=== PATIENT | female | born 1970 | race Caucasian/White ===

== ENCOUNTER 2018-11-05 01:03 | Emergency (ER) | payer OTHER ==
--- OUTSIDE RECORDS SUMMARY | 2018-11-05 01:05 | XMS REPORT ---
:1970 Author Organization [facility] Address [address] [place] [address] Care Team Providers Name Role Phone Unavailable Unavailable Unavailable Problems This patient has no known problems. Allergies, Adverse Reactions, Alerts This patient has no known allergies or adverse reactions. Medications This patient has no known medications.
[2018-11-05 02:03] LABS: Absolute Lymphocytes (CBC) 0.4 K/uL (0.7-4.9); Absolute Monocytes 0.8 K/uL (0.1-1.3); Absolute Neutrophil 5.3 K/uL (1.8-8.0); Basophils % 0.4 % (0-1.3); Eosinophils % 0.9 % (0-4.4); Hematocrit 35.8 % (36.0-45.0); Lymphocytes % 6.5 % (15.3-44.8); MPV 9.2 fL (7.6-11.3); Monocytes % 11.5 % (3.3-12.3); RBC Red Blood Cell Count 3.83 M/uL (3.86-4.86)
[2018-11-05] MEDS ORDERED: METRONIDAZOLE 500mg IVPB 500 MG/100 ML BAG IV ONE (02:03)
[2018-11-05] MEDS ORDERED: ONDANSETRON 4 MG/2 ML VIAL ONE (02:03)
[2018-11-05] MEDS ORDERED: MORPHINE 4 MG/ML SYR ONE (02:03)
[2018-11-05] MEDS ORDERED: CEFTRIAXONE/SWI 1gm 0 GM/0 ML SYR ONE (02:03)
[2018-11-05] MEDS ORDERED: NA CHLORIDE 0.9% 1,000 ML ONE (02:03)
[2018-11-05 02:22] LABS: Albumin 3.4 g/dL (3.4-5.0); Bilirubin Direct 0.2 mg/dL (0-0.2); Bilirubin Total 0.5 mg/dL (0.2-1.0); Potassium 4.2 mmol/L (3.5-5.1); Protein, Total 6.5 g/dL (6.4-8.2)
[2018-11-05] MEDS ORDERED: CIPROFLOXACIN 400mg IV 400 MG/200 ML BAG IV ONE (02:46)
--- NOTE | 2018-11-05 05:16 | EDPHYS ---
Physician Documentation [facility] Name: Alice Vines Age: 48 yrs Sex: Female : 1970 Arrival Date: 11/05/2018 Time: 01:04 Bed 5 Private MD: Rita Loco K ED Physician Wendy Porras HPI: 11/05 01:33 This 48 yrs old Female presents to ER via Wheelchair with complaints of ma2 Abdominal Pain. 01:33 The patient presents with abdominal pain. Onset: The symptoms/episode began/occurred ma2 gradually, 1 day(s) ago. The symptoms do not radiate. Associated signs and symptoms: Pertinent negatives: anorexia, blood in stools. The symptoms are described as burning. Severity of pain: At its worst the pain was moderate in the emergency department the pain is unchanged. The patient has not experienced similar symptoms in the past. 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 - Social history:: Smoking status: Patient/guardian denies using tobacco, Patient/guardian denies using alcohol, street drugs, The patient lives with family. - Ebola Screening: : Patient negative for fever greater than or equal to 101.5 degrees Fahrenheit, and additional compatible Ebola Virus Disease symptoms. - Family history:: not pertinent. ROS: 01:33 Constitutional: Negative for fever, chills, and weight loss, Cardiovascular: Negative ma2 for chest pain, palpitations, and edema, Respiratory: Negative for shortness of breath, cough, wheezing, and pleuritic chest pain. 01:33 Abdomen/GI: Positive for abdominal pain, Negative for nausea and vomiting, nausea, vomiting, and diarrhea, bowel incontinence. 01:33 All other systems are negative. Exam: 01:33 Constitutional: This is a well developed, well nourished patient who is awake, alert, ma2 and in no acute distress. 01:33 Abdomen/GI: Palpation: moderate abdominal tenderness, in the right upper quadrant, left upper quadrant, right lower quadrant and left lower quadrant, Hernia: not appreciated. 01:33 Neck: Trachea midline, no thyromegaly or masses palpated, and no cervical [facility] lymphadenopathy. Supple, full range of motion without nuchal rigidity, or vertebral point tenderness. No Meningismus. Chest/axilla: Normal chest wall appearance and motion. Nontender with no deformity. No lesions are appreciated. Cardiovascular: Regular rate and rhythm with a normal S1 and S2. No gallops, murmurs, or rubs. Normal PMI, no JVD. No pulse deficits. Respiratory: Lungs have equal breath sounds bilaterally, clear to auscultation and percussion. No rales, rhonchi or wheezes noted. No increased work of breathing, no retractions or nasal flaring. Vital Signs: 01:25 BP 115 / 68; Pulse 105; Resp 20 S; Temp 98.6(O); Pulse Ox 100% on R/A; Weight 55.79 kg jd3 (R); Height 5 ft. 6 in. (167.64 cm) (R); Pain 9/10; 04:11 BP 112 / 72; Pulse 90; Resp 16; Pulse Ox 99% ; Pain 0/10; jl3 05:03 BP 96 / 70; Pulse 89; Resp 17 S; Pulse Ox 99% on R/A; jd3 01:25 Body Mass Index 19.85 (55.79 kg, 167.64 cm) jd3 MDM: 01:17 Patient medically screened. [facility] 01:33 Differential diagnosis: gastritis, Irritable bowel syndrome. [facility] 05:13 Data reviewed: vital signs, nurses notes. Counseling: I had a detailed discussion with [facility] the patient and/or guardian regarding: the historical points, exam findings, and any diagnostic results supporting the discharge/admit diagnosis, the presence of at least one elevated blood pressure reading (>120/80) during this emergency department visit. Response to treatment: the patient's symptoms have resolved after treatment. 11/05 01:31 Order name: Basic Metabolic Panel; Complete Time: 02:27 [facility] 11/05 01:31 Order name: CBC with Diff; Complete Time: 02:27 [facility] 11/05 01:31 Order name: Creatinine for Radiology; Complete Time: 02: [facility] 11/05 01:31 Order name: Hepatic Function; Complete Time: 02:27 ia2 11/05 01:31 Order name: Lipase; Complete Time: 02:11/05 01:31 Order name: Test, Serum; Complete Time: :11/05 01:31 Order name: IV Saline Lock; Complete Time: 03:46 11/05 01:31 Order name: CT Abd/Pelvis - W/Contrast 11/05 01:31 Order name: Labs collected and sent; Complete Time: 03:46 11/05 01:31 Order name: Urine Dipstick-Ancillary (obtain specimen); Complete Time: 03:46 Administered Medications: 01:56 Drug: Flagyl 500 mg Volume: 100 ml; Route: IVPB; Rate: 200 ml/hr; Infused Over: 30 jl3 mins; Site: right antecubital; 03:45 Follow up: Response: No adverse reaction; IV Status: Completed infusion; IV Intake: jl3 100ml 01:57 Drug: NS 0.9% 1000 ml Route: IV; Rate: 1 bolus; Site: right antecubital; jl3 03:46 Follow up: IV Status: Completed infusion; IV Intake: 1000ml jl3 01:57 Drug: Zofran 4 mg Route: IVP; Site: right antecubital; jl3 03:45 Follow up: Response: No adverse reaction; Nausea is decreased jl3 01:57 Drug: morphine 4 mg Route: IVP; Site: right antecubital; jl3 03:45 Follow up: Response: No adverse reaction; Pain is decreased jl3 01:57 Drug: Rocephin 1 grams Route: IV; Rate: 1 calculated rate; Site: right antecubital; jl3 03:46 Follow up: IV Status: Completed infusion; IV Intake: 200ml jl3 05:25 Drug: Fleet Enema 133 ml Route: IA; jd3 05:25 Follow up: Response: Medication administered at discharge. jd3 Disposition: 11/05/18 05:15 Discharged to Home. Impression: Constipation, Leiomyoma of uterus. - Condition is Stable. - Discharge Instructions: Constipation, Adult. - Prescriptions for Colace 100 mg Oral Tablet - take 1 tablet by ORAL route every 12 hours; 14 tablet. - Medication Reconciliation Form, Thank You Letter, Antibiotic Education, Prescription Opioid Use form. - Follow up: Private Physician; When: Tomorrow; Reason: Continuance of care. Signatures: Dispatcher [employer] Kavin Corado RN RN jl3 Damon Motley RN RN jd3 Wendy Porras MD MD ma2 Corrections: (The following items were deleted from the chart) 05:26 05:15 11/05/2018 05:15 Discharged to Home. Impression: Constipation; Leiomyoma of jd3 uterus. Condition is Stable. Forms are Medication Reconciliation Form, Thank You Letter, Antibiotic Education, Prescription Opioid Use. Follow up: Private Physician; When: Tomorrow; Reason: Continuance of care. ma2
--- NOTE | 2018-11-05 05:16 | ER ---
Nurse's Notes [facility] Name: Alice Vines Age: 48 yrs Sex: Female : 1970 Arrival Date: 11/05/2018 Time: 01:04 Bed 5 Private MD: Rita Loco K Diagnosis: Constipation;Leiomyoma of uterus Presentation: 11/05 01:23 Presenting complaint: Patient states: "I am having quite a bit of abdominal pain. it jd3 started while I was at work and I tried to wait it out and see my doctor in the morning, but it just got to bad. it feels like really bad cramps, but irregular and very painful.". Transition of care: patient was not received from another setting of care. Onset of symptoms was November 05, 2018. Risk Assessment: Do you want to hurt yourself or someone else? Patient reports no desire to harm self or others. Initial Sepsis Screen: Does the patient meet any 2 criteria? No. Patient's initial sepsis screen is negative. Does the patient have a suspected source of infection? No. Patient's initial sepsis screen is negative. Care prior to arrival: None. 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 - Social history:: Smoking status: Patient/guardian denies using tobacco, Patient/guardian denies using alcohol, street drugs, The patient lives with family. - Ebola Screening: : Patient negative for fever greater than or equal to 101.5 degrees Fahrenheit, and additional compatible Ebola Virus Disease symptoms. - Family history:: not pertinent. Screenin:26 Abuse screen: Denies threats or abuse. Nutritional screening: No deficits noted. jd3 Tuberculosis screening: No symptoms or risk factors identified. Fall Risk Ambulatory Aid- None/Bed Rest/Nurse Assist (0 pts). Gait- Weak (10 pts.). Mental Status- Oriented to own ability (0 pts). Total Lee Fall Scale indicates No Risk (0-24 pts). Assessment: 02:16 Reassessment: pt finished PO contrast. jd3 03:42 General: Pt states abd pain began in pelvic area Thursday, moved to upper and lower jl3 abd and worsened to "unbearable" night. Hx endometriosis. Allergic to PCN.. General: Appears distressed, uncomfortable, slender, well nourished, Behavior is calm, cooperative. Pain: Complains of pain in right upper quadrant, left upper quadrant, right lower quadrant and left lower quadrant Pain currently is 8 out of 10 on a pain scale. Neuro: No deficits noted. Cardiovascular: No deficits noted. Respiratory: No deficits noted. GI: Bowel sounds present X 4 quads. Abdomen is tender to palpation. : No deficits noted. EENT: No deficits noted. Derm: No deficits noted. Musculoskeletal: No deficits noted. 05:03 Reassessment: Patient appears in no apparent distress at this time. Patient and/or jd3 family updated on plan of care and expected duration. Pain level reassessed. Patient is alert, oriented x 3, equal unlabored respirations, skin warm/dry/pink. awaiting CT results. 05:25 Reassessment: Patient appears in no apparent distress at this time. Patient and/or jd3 family updated on plan of care and expected duration. Pain level reassessed. Patient is alert, oriented x 3, equal unlabored respirations, skin warm/dry/pink. Patient states feeling better. Vital Signs: 01:25 BP 115 / 68; Pulse 105; Resp 20 S; Temp 98.6(O); Pulse Ox 100% on R/A; Weight 55.79 kg jd3 (R); Height 5 ft. 6 in. (167.64 cm) (R); Pain 9/10; 04:11 BP 112 / 72; Pulse 90; Resp 16; Pulse Ox 99% ; Pain 0/10; jl3 05:03 BP 96 / 70; Pulse 89; Resp 17 S; Pulse Ox 99% on R/A; jd3 01:25 Body Mass Index 19.85 (55.79 kg, 167.64 cm) jd3 ED Course: 01:04 Patient arrived in ED. am2 01:05 Rita Loco MD is Private Physician. am2 01:17 Wendy Porras MD is Attending Physician. ma2 01:25 Triage completed. jd3 01:26 Arm band placed on. jd3 01:26 Patient has correct armband on for positive identification. Bed in low position. Call jd3 light in reach. Side rails up X 1. Adult w/ patient. 01:50 Inserted saline lock: 20 gauge in right antecubital area, using aseptic technique. jd3 Blood collected. 03:42 Kavin Jensen, RN is Primary Nurse. jl3 04:32 CT completed. Patient tolerated procedure well. Patient moved to CT via wheelchair. eh Patient moved back from CT. 04:37 CT Abd/Pelvis - W/Contrast In Process Unspecified. EDMS 04:45 Primary Nurse role handed off by Kavin Jensen, VINH jd3 04:45 Damon Motley RN is Primary Nurse. jd3 05:25 No provider procedures requiring assistance completed. IV discontinued, intact, jd3 bleeding controlled, No redness/swelling at site. Pressure dressing applied. Administered Medications: 01:56 Drug: Flagyl 500 mg Volume: 100 ml; Route: IVPB; Rate: 200 ml/hr; Infused Over: 30 jl3 mins; Site: right antecubital; 03:45 Follow up: Response: No adverse reaction; IV Status: Completed infusion; IV Intake: jl3 100ml 01:57 Drug: NS 0.9% 1000 ml Route: IV; Rate: 1 bolus; Site: right antecubital; jl3 03:46 Follow up: IV Status: Completed infusion; IV Intake: 1000ml jl3 01:57 Drug: Zofran 4 mg Route: IVP; Site: right antecubital; jl3 03:45 Follow up: Response: No adverse reaction; Nausea is decreased jl3 01:57 Drug: morphine 4 mg Route: IVP; Site: right antecubital; jl3 03:45 Follow up: Response: No adverse reaction; Pain is decreased jl3 01:57 Drug: Rocephin 1 grams Route: IV; Rate: 1 calculated rate; Site: right antecubital; jl3 03:46 Follow up: IV Status: Completed infusion; IV Intake: 200ml jl3 05:25 Drug: Fleet Enema 133 ml Route: MS; jd3 05:25 Follow up: Response: Medication administered at discharge. jd3 Intake: 03:45 IV: 100ml; Total: 100ml. jl3 03:46 IV: 1000ml; Total: 1100ml. jl3 03:46 IV: 200ml; Total: 1300ml. jl3 Outcome: 05:15 Discharge ordered by . franny 05:26 Discharged to home via wheelchair, with family. jd3 05:26 Condition: stable 05:26 Discharge instructions given to patient, family, Instructed on discharge instructions, follow up and referral plans. medication usage, Demonstrated understanding of instructions, follow-up care, medications, Prescriptions given X 1. 05:26 Patient left the ED. jd3 Signatures: Dispatcher [employer] EDGus Chow John, RN RN jl3 Sheryl Rossi Jonathon, RN RN jd3 Wendy Porras MD MD ma2
[2018-11-05] MEDS ORDERED: FLEET ENEMA ADULT PR ONE (05:28)
--- NOTE | 2018-11-05 11:22 | RAD REPORT ---
EXAM DESCRIPTION: CT - Abdomen Pelvis W Contrast - 11/05/2018 5:11 am CLINICAL HISTORY: Abdominal pain. COMPARISON: Lower abdominal pain. TECHNIQUE: Axial [address] imaging of the abdomen and pelvis performed utilizing intravenous contrast. Reformatted coronal and sagittal images reviewed. A dose reduction technique was utilized with automated exposure control according to patient size. FINDINGS: LOWER THORAX: Minimal left lower lobe atelectasis. Heart is normal in size. There is pect us excavatum deformity compressing upon the anterior wall of the right atrium and ventricle. No peric ardial fluid. Bilateral imaged breast implants appear intact. ABDOMEN: LIVER/GALLBLADDER: Normal liver size, contour, and attenuation. Normal gallbladder. SPLEEN/PANCREAS: Normal spleen. Normal pancreas. KIDNEYS/ADRENAL GLANDS: Normal adrenal glands. Normal left kidney. There is mild dilatation of the r ight renal pelvis. AP pelvis is 1.6 cm. There is no visualized ureteral stone. Normal right renal enh ancement. No perinephric edema. RETROPERITONEAL VESSELS/NODES: Normal aorta and inferior vena cava caliber. No adenopathy. Mesenteri c vessels are well-opacified. BOWEL: Normal stomach. Small bowel caliber is within normal limits. Normal appendix in the right low er quadrant. Large amount of fecal loading throughout the colon without obstruction. MESENTERY/PERITONEUM: No adenopathy. No ascites. No free air. PELVIS: BLADDER: Unremarkable bladder. GENITAL ORGANS: Uterus is heterogeneous. Hypodense mass in the posterior lower uterine segment sugge stive of fibroid. The uterus is eccentric in the right hemipelvis. Normal ovaries. PERITONEUM: Mild pelvic free fluid. No pelvic adenopathy. BONES AND SOFT TISSUES: Degenerative disc space narrowing at L5-S1. Mild L4-5 diffuse disc bulge. No subluxation. Intact bony pelvis. IMPRESSION: 1. Mild right hydronephrosis with no obstructing stone or mass. The distal right ureter may be compressed by the rightward positioning of the uterus. 2. Constipation. 3. Possible uterine fibroid. Mild pelvic free fluid. 4. Pectus excavatum. Electronically signed by: Kayla Pichardo DO 11/05/2018 4:47 AM CDT Due to temporary technical issues with the PACS/Fluency reporting system, reports are being signed by the in house radiologist as a courtesy to ensure prompt reporting. The interpreting radiologist is f anthonyly responsible for the content of the report.
== END 2018-11-05 05:26 | disposition home or self-care (01) ==
LOC: ER 01:03
DX: K59.00 Constipation, unspecified (principal); D25.9 Leiomyoma of uterus, unspecified; Q67.6 Pectus excavatum; N13.30 Unspecified hydronephrosis; Z88.0 Allergy status to penicillin
CPT/HCPCS: 36415; 74177; 80048; 80076; 83690; 84703; 85025; 96365; 96368; 96375; 99284; J0696; J0744; J2405; J7030; Q9967

== ENCOUNTER 2018-11-11 09:24 | Day surgery (SDC) | payer OTHER ==
[2018-11-08 13:53] LABS: Urine Appearance CLEAR; Urine Bilirubin NEGATIVE (NEG); Urine Blood 2+ (NEG); Urine Color YELLOW; Urine Glucose NEGATIVE (NEG); Urine Protein NEGATIVE (NEG); Urine Urobilinogen 0.2 mg/dL (0.2-1.0)
[2018-11-08 13:54] LABS: Absolute Lymphocytes (CBC) 0.7 K/uL (0.7-4.9); Absolute Monocytes 0.3 K/uL (0.1-1.3); Absolute Neutrophil 2.6 K/uL (1.8-8.0); Eosinophils % 1.8 % (0-4.4); Hematocrit 36.1 % (36.0-45.0); Lymphocytes % 18.4 % (15.3-44.8); MPV 9.7 fL (7.6-11.3); Monocytes % 7.7 % (3.3-12.3); RBC Red Blood Cell Count 3.84 M/uL (3.86-4.86)
[2018-11-08 14:12] LABS: Urine Microscopic Reflex ORDER UMIC
[2018-11-08 14:16] LABS: Urine Bacteria <20 /HPF (<20); Urine RBC <5 /HPF (NONE SEEN)
[2018-11-08 14:17] LABS: Urine Culture Reflex Order NOT NEEDED
--- OUTSIDE RECORDS SUMMARY | 2018-11-11 09:27 | XMS REPORT ---
:1970 [facility] Address [address] [place] [address] Care Team Providers Name Role Phone Unavailable Unavailable Unavailable Problems This patient has no known problems. Allergies, Adverse Reactions, Alerts This patient has no known allergies or adverse reactions. Medications This patient has no known medications.
[2018-11-11] MEDS ORDERED: CEFAZOLIN/SWI 2gm 2 GM/20 ML SYR ONE (09:42)
[2018-11-11] MEDS ORDERED: Ringers Lactate 1,000 ML IV ONE ×2 (09:42→13:12)
[2018-11-11 09:54] LABS: Specific Gravity 1.015 (1.005-1.030)
[2018-11-11] MEDS ORDERED: SCOPOLAMINE HYDROBROMIDE PATCH TD ONE (10:15)
[2018-11-11] MEDS ORDERED: PROPOFOL 200 MG/20 ML VIAL IV ONE (11:17)
[2018-11-11] MEDS ORDERED: FENTANYL CITR 100 MCG/2 ML ONE ×2 (11:18→14:14)
[2018-11-11] MEDS ORDERED: ROCURONIUM 50 MG/5 ML VIAL IV ONE (11:18)
[2018-11-11] MEDS ORDERED: LIDOCAINE 2% MPF 5 ML VIAL ONE (11:18)
[2018-11-11] MEDS ORDERED: ONDANSETRON 4 MG/2 ML VIAL ONE ×3 (11:19→17:51)
[2018-11-11] MEDS ORDERED: MIDAZOLAM HCL 2 MG/2 ML INJ ONE (11:19)
[2018-11-11] MEDS ORDERED: KETOROLAC 30 MG/ML INJ ONE (14:35)
[2018-11-11] MEDS ORDERED: GLYCOPYRROLATE 0.2 MG/ML SYR ONE (14:42)
[2018-11-11] MEDS ORDERED: NEOSTIGMINE 1 MG/ML -10 ML VIAL ONE (14:42)
[2018-11-11] MEDS ORDERED: Mastisol Adhesive Liq ONE (14:45)
[2018-11-11] MEDS ORDERED: PROMETHAZINE 25 MG/ML VIAL ONE (16:24)
[2018-11-11] MEDS ORDERED: MEPERIDINE HCL 50 MG/ML AMP ONE (16:37)
[2018-11-11] MEDS ORDERED: METOCLOPRAMIDE 10 MG/2mL INJ ONE (17:50)
--- NOTE | 2018-11-12 00:42 | OP ---
Date of Procedure: 11/11/2018 Surgeon: Tomasa Fernandes MD Food Service Helper: Yeni Badillo. Preoperative Diagnoses: Menorrhagia, dysmenorrhea, pelvic pain. Postoperative Diagnoses: 1.Menorrhagia, AUB-A/E. 2.Endometrial polyp. 3.Secondary dysmenorrhea due to endometriosis, possible adenomyosis. 4.Extensive deep infiltrating endometriosis was treated. 5.Adhesions of the uterus and bladder. Procedures Performed: 1.Hysteroscopy, polypectomy. 2.Endometrial ablation with HTA. 3.Laparoscopy with lysis of adhesions. 4.Bilateral salpingectomy. 5.Endometriosis excision including dissection of the left lateral wall and right pararectal nodule e xcision. The endometriotic nodule extended all the way to the pelvic diaphragm. Anesthesia: General endotracheal. Estimated Blood Loss: Minimal. Specimens: Left anterior cul-de-sac, right pararectal, left lateral wall, right lateral wall, and bi lateral tubes. Findings: There was an endometrial polyp that was large, about 2 cm, in the fundal part of the endom etrium. This was retrieved completely and then ablation was performed. Endometriosis was found in the anterior cul-de-sac on the left; it was completely excised. The right lateral wall had endometriosis above the level of the ureter, medial to it, and just above the uteri ne artery, extending to the distal uterosacral ligament. Then, there was right pararectal nodule abiodun t was deep and infiltrating and was all the way down to the pelvic diaphragm. Then, the left lateral wall large implant was also deep and infiltrating all the way to the level of the internal iliac art gus. This was dissected free from the base. The ureter was medial and inferior. This entire implan t was excised as well as another implant inferior and medial to the ureter. There were adhesions of the bladder to the uterus all the way along the scar, and these adhe sions had to be taken down even before I could place the trocar at the suprapubic region. Four ports were used. The patient had an abdominoplasty. Careful closure of the incisions was done at the end of the procedure. Indications For Procedure: The patient is 48-year-old with severe heavy periods and painful periods and pelvic pain. It has gotten constant, worse over time. She has seen another country manager in the local area. Has not tried any hormone contraceptives. However, she was suggested to have a Mirena i mplant, which she declined and came for a second opinion. We discussed about all the other options i ncluding depo-medroxyprogesterone acetate, which she declined. Did not want to start the oral contra ceptive combination, estrogen progesterone pills. She also has history of palpitations, which was wo rked up and she was cleared. So, no absolute contraindications to hormonal treatment. However, tye ent completely declined this. Has not feel felt well when these were tried long time in the past. D iscussed about the surgical options including endometrial ablation with HTA and then removal of the t ubes since she does not have a definitive control method as well as for her pain. If there was endometriosis, proposed to do a laparoscopy with endometriosis excision and patient preferred to hav e the alternative with hysterectomy with bilateral salpingo-oophorectomy if the endometriosis was ext ensive. However, this surgery is not warranted because she has not tried anything less complex or a conservative nonsurgical method. Description Of Procedure: After the patient was appropriately counseled and consented, she was broug ht to the OR. She was re-consented here today, taken back to OR, placed in supine fashion on the ope rating table. Arms were tucked by the side. After she was given general anesthesia, her legs were p laced in Jack stirrups for dorsal lithotomy position. Abdomen, vulva, vagina, and perineum were pre pped and draped in a sterile fashion. Portillo was placed to drain the bladder. Speculum was used to e xpose the cervix. Anterior lip was grasped with 2 Allis clamps. The HTA sheath was primed and kennedy l saline, 30 degree lens was used. Once the uterine cavity was entered, the endometrial polyp was see n. This was on a relatively flimsy base, so the scope was pulled out. No forceps were used to compl etely remove the polyp. Then, once the scope was placed inside, the entire polyp was removed. Thoro ugh inspection was done. Pictures were taken. Then, started the HTA. Two Ray-Tecs were packed in t he posterior fornix and the Allis hooked onto the HTA sheath, and the entire cavity integrity test. 10 minutes the heating cycle, 10 minutes ablation cycle, and 1.5 minutes cooling cycle overall conduc davion without any interruption or leaks. Once this was done, additional hysteroscopy was performed to rinse all the cavity. There was excellent ablation effect globally. The scope was removed. Ray-Kris s were removed. The diagnostic VCare was introduced to the uterus and fixed in place. This area was then draped. A 1 cm infraumbilical incision was made in a curvilinear fashion inferior to the newly made umbilicus with a 15 blade. Then, fascia was reached and incised. There were about 2-3 layers of this fascia to her abdominoplasty. So, went ahead and after tagging the top layer with 0 Vicryl sutures, another 2 layers were tagged and held on Kochers. April was introduced after bluntly entering through her peritoneum. Into the peritoneal cavity, S retractors placed. April introduced. Site of entry chec ked, unremarkable. Appendix absent. The liver appeared to be slightly pale. Gallbladder normal. U pper abdominal surfaces, without any endometriotic lesions. Omentum unremarkable. Specimen was plac ed in T bag. A 5 mm left lower quadrant port was placed. There were extensive adhesions of the uter us to the anterior abdominal wall and the bladder as well as on the lateral aspects on the bladder pe ritoneum. After the adhesions were taken down with scissors as well as the Harmonic and these were all separate d and the anatomy was restored, then a 5 mm suprapubic and 5 mm left lower quadrant ports were placed . The pelvic cavity was surveyed closely. There was endometriosis in the anterior cul-de-sac as dic tated above as well as the right lateral wall, left lateral wall, and posterior cul-de-sac in the rig ht pararectal space. The plan was to remove the endometriosis in the anterior cul-de-sac first and t hen the posterior and lateral endometriosis. Once the plan was made, the trocars were all fixed in p lace. Then, salpingectomy was performed with the Harmonic. Both tubes were placed in the anterior c ul-de-sac. Then, endometriosis was excised in the anterior cul-de-sac by opening up the peritoneum over the bladder and circumferentially dissecting it and from the deeper layer the endomet rial tissue from the bladder, and this was removed with the help of the Harmonic. Specimen was retri eved. Attention was directed to the left lateral wall. Here, an incision was made above the level of all t he endometriotic implants, just lateral to the reflection of the broad ligament. Once this incision was extended about 10 cm superiorly and inferiorly in total, then the external iliac artery was ident ified, the endometriotic implants were identified on the medial aspect of the peritoneum. Then, the dissection was carried down inferiorly with a monopolar needle tip till I got to the base of the impl ants. However, the deep infiltrating endometriosis was into the left lateral wall, so carefully the internal iliac artery had to be . Then, the ureter was dissected inferiorly and medially. Then, the Harmonic was used to remove the endometriosis and then the underlying tissues till normal t issues were seen. Then, the entire endometriotic implants along with the medial wall of the peritone um were all removed with the help of the monopolar needle. Then, medial and inferior, there was anot her implant which was excised with the help of scissors. There was good hemostasis. The ureter was safe. The internal iliac artery branches were unremarkable and were safe with no blee ding. The right lateral wall endometriosis was picked up. The peritoneum incised with the scissors. Then, the rest of the dissection was performed from the underlying tissues and the endometriosis was separ ated. Then, the rest of it was removed with the help of the monopolar needle tip. In the posterior cul-de-sac, there was a nodular endometriosis, so a medium sizer was placed through the rectum, devia davion to the left side. Then, circumferentially, incision was made with the help of scissors to open u p the peritoneum circumferentially. Then, gradually, the dissection was performed close to the nodul e just palpating with the tip of the scissors as well as the [place], keeping the endometriosis wit h the [place] that was retracting it and the tissues were incised carefully, dissected away till the implant was from its base. The basal part was still stuck after removing the top, and thi s was removed with the help of the Harmonic. Then, bottommost part close to the pelvic diaphragm was excised with the help of plain scissors. There was no bleeding here, mostly extremely small. This was cauterized with the Harmonic. There was excellent hemostasis. Thorough irrigation and suction p erformed with at least a liter of normal saline. After all the specimens were retrieved through the umbilical port, trocars were removed under direct vision. Instrument, needle, and sponge counts were done. All the trocars were removed. No bleeding. Fascia closed at the umbilicus with two tag sutu res at two distant levels. The inner 2 layers were tied together first, then the outer single layer tied together on each end. All the skin incisions were closed with interrupted 4-0 Vicryl. All the instrument, needle, and sponge counts were done and were correct at the end of the case. The patient tolerated the procedure well. The ureter had no evidence of electrical, mechanical, or thermal inju ry to it and was safe on the left side and the right side, completely undistorted. The VCare and the Portillo were removed. The patient was recovered from anesthesia and taken to PACU in stable condition. She will follow up with me in 1 week and 3 weeks for postop. She was given 2 g o f Ancef at the end of the case without any complication. ALEX Voice ID: [id number] Report ID: [id number]
== END 2018-11-11 18:22 | disposition home or self-care (01) ==
LOC: OR 09:24
PROVIDERS: ATTEND Obstetrics & Gynecology
PROC: 0UB98ZX Excision of Uterus, Via Natural or Artificial Opening Endoscopic, Diagnostic (ICD-10-PCS; 2018-11-11)
PROC: 0UB44ZZ Excision of Uterine Supporting Structure, Percutaneous Endoscopic Approach (ICD-10-PCS; 2018-11-11)
PROC: 0UBF4ZZ Excision of Cul-de-sac, Percutaneous Endoscopic Approach (ICD-10-PCS; 2018-11-11)
PROC: 0DBW4ZZ Excision of Peritoneum, Percutaneous Endoscopic Approach (ICD-10-PCS; 2018-11-11)
PROC: 0U5B8ZZ Destruction of Endometrium, Via Natural or Artificial Opening Endoscopic (ICD-10-PCS; 2018-11-11)
PROC: 0UT74ZZ Resection of Bilateral Fallopian Tubes, Percutaneous Endoscopic Approach (ICD-10-PCS; principal; 2018-11-11 11:30)
DX: N92.0 Excessive and frequent menstruation with regular cycle (principal); N94.5 Secondary dysmenorrhea; N80.3 Endometriosis of pelvic peritoneum; N84.0 Polyp of corpus uteri; N80.8 Other endometriosis; N73.6 Female pelvic peritoneal adhesions (postinfective); N83.8 Other noninflammatory disorders of ovary, fallopian tube and broad ligament; N80.0 Endometriosis of uterus
CPT/HCPCS: 36415; 81003; 81015; 81025; 82962; 85025; 86850; 86900; 86901; 88302; 88305; J0690; J2175; J2250; J2405; J2550; J2704; J2710; J2765; J3010